=== PATIENT | male | born 1975 | race Two or more races ===

== ENCOUNTER 2017-05-16 12:51 | Emergency (ER) | payer BC, MEDICAID ==
[~2017-05-16] VITALS: Ht 160 cm; Wt 78.0 kg
[~2017-05-16 12:51] MED LIST: INSU100V11; INSU100V7
--- NOTE | 2017-05-16 13:00 | NUR ---
PT BIB SELF C/O DYSURIA, BURNING, HEMATURIA, INCREASED FREQUENCY, AND "STONES" STARTING YESTERDAY. DENIES N/V/D. RESP EVEN UNLABORED. SKIN WARM NONDIAPHORETIC. AMBULATORY WITH STEADY GAIT. NAD NOTED. IN ER BED 12.
[2017-05-16 13:48] LABS: APPEARANCE,URINE Slightly Cloudy (CLEAR); BILIRUBIN,URINE Negative (NEGATIVE); BLOOD, URINE Large Ery/uL (NEGATIVE); COLOR,URINE Yellow (YELLOW); KETONES,URINE 15 (NEGATIVE); LEUKOCYTE ESTERASE ,URINE Trace (NEGATIVE); NITRITE, URINE Negative (NEGATIVE); PH,URINE 5.5 (5.0-8.0); PROTEIN,URINE 100 mg/dl (NEGATIVE); UGLUCOSE 500 MG/DL mg/dL (NEGATIVE); UROBILINOGEN,URINE 0.2 EU/dL (0.2)
[2017-05-16 14:07] LABS: BACTERIA,URINE Few /HPF (None Seen); RBC,URINE 51-80 /HPF (0-2); SQUAMOUS EPITHELIAL CELL,UR Rare /HPF (None Seen)
[2017-05-16] MEDS ORDERED: PHENAZOPYRIDINE HCL 200 MG TABLET ONE (14:25)
[2017-05-16 14:26] LABS: BASOPHILS # (AUTO) 0.5 /CMM (0.0-0.2); BASOPHILS % (AUTO) 3.6 % (0.0-2.0); EOSINOPHILS # (AUTO) 0.2 /CMM (0.0-0.7); EOSINOPHILS % (AUTO) 1.1 % (0.0-6.0); HEMATOCRIT 46 % (39-51); HEMOGLOBIN 15.5 g/dL (13.5-17.5); LYMPHOCYTES # (AUTO) 3.1 /CMM (0.8-4.8); LYMPHOCYTES % (AUTO) 21.5 % (20.0-44.0); MEAN CORPUSCULAR HEMOGLOBIN 30 PG (26.0-33.0); MEAN CORPUSCULAR HGB CONC 34 g/dl (31.0-36.0); MEAN CORPUSCULAR VOLUME 89 fL (80-96); MONOCYTES # (AUTO) 1.3 /CMM (0.1-1.30); MONOCYTES % (AUTO) 9.2 % (2.0-12.0); NEUTROPHILS # (AUTO) 9.3 /CMM (1.8-8.9); NEUTROPHILS % (AUTO) 64.6 % (43.0-81.0); PLATELET COUNT (AUTO) 249 /CMM (150-450); RDW COEFFICIENT OF VARIATION 12.4 (11.5-15.0); RED BLOOD CELL COUNT(AUTO) 5.21 MIL/uL (4.5-6.0); WHITE BLOOD COUNT (AUTO) 14.4 K/uL (4.3-11.0)
[2017-05-16] MEDS ORDERED: PHENAZOPYRIDINE HCL 200 MG TABLET PO ONE (14:30)
[2017-05-16 14:35] LABS: CALCIUM, SERUM 9.1 mg/dL (8.5-10.1); CREATININE 0.7 mg/dL (0.6-1.3); POTASSIUM 3.7 mmol/L (3.5-5.1)
[2017-05-16] MEDS ORDERED: LEVOFLOXACIN 500 MG /D5W 100ML 500 MG/100 ML PIGGYBACK IV ONE (15:00)
[2017-05-16] MEDS ORDERED: CEFTRIAXONE 1GM BAG (ER ONLY) 1 GM/50 ML PIGGYBACK IV ONE (15:00)
[2017-05-16] MEDS ORDERED: IV NS 0.9% 1,000 ML BAG IV ONE (15:00)
[2017-05-16] MEDS ORDERED: IV NS 0.9% 1,000 ML ONE (15:25)
[2017-05-16] MEDS ORDERED: IV SET PRIMARY 1 EA INFUS.SET MC ONE (15:25)
[2017-05-16] MEDS ORDERED: IV SET PRIMARY PUMP SET 1 EA INFUS.SET MC ONE (15:25)
[2017-05-16] MEDS ORDERED: LEVOFLOXACIN 500 MG /D5W 100ML 100 ML IV ONE (15:25)
--- NOTE | 2017-05-16 15:34 | NUR ---
RESTING QUIETLY, NAD NOTED. IV ACCESS ESTABLISHED. IVF AND ABX INITIATED. ALL NEEDS ATTENDED TO.
--- NOTE | 2017-05-16 16:30 | NUR ---
Patient discharged to home in stable condition. Written and verbal after care instructions given. Patient verbalizes understanding of instruction. IV removed. Catheter intact and site benign. Pressure and 4x4 applied to site. No bleeding noted.
[2017-05-16 16:32] VITALS: BP 132/76
== END 2017-05-16 16:33 | disposition home or self-care (01) ==
LOC: ER 12:53
DX: N39.0 Urinary tract infection, site not specified (principal); E11.9 Type 2 diabetes mellitus without complications; F17.200 Nicotine dependence, unspecified, uncomplicated; Z79.4 Long term (current) use of insulin
CPT/HCPCS: 36415; 80048-TC; 81000-TC; 85025-TC; A4606; J1956; J7030; Z7610